=== PATIENT | male | born 1975 | race Caucasian/White ===

== ENCOUNTER 2021-06-21 16:17 | Emergency (ER) | payer MEDICAID ==
[~2021-06-21] VITALS: Ht 172.7 cm; Wt 109.1 kg
[2021-06-21 17:11] VITALS: BP 128/74
== END 2021-06-21 17:11 | disposition home or self-care (01) ==
LOC: EMS 16:19
DX: H60.91 Unspecified otitis externa, right ear (principal); F17.210 Nicotine dependence, cigarettes, uncomplicated; F12.90 Cannabis use, unspecified, uncomplicated
CPT/HCPCS: 99283

== ENCOUNTER 2021-06-22 20:24 | Emergency (ER) | payer MEDICAID ==
[~2021-06-22] VITALS: Ht 172.7 cm; Wt 109.1 kg
[2021-06-22 23:00] VITALS: BP 145/72
== END 2021-06-22 23:00 | disposition home or self-care (01) ==
LOC: EMS 20:26
DX: H60.91 Unspecified otitis externa, right ear (principal); F12.90 Cannabis use, unspecified, uncomplicated; F17.210 Nicotine dependence, cigarettes, uncomplicated
CPT/HCPCS: 99281; Z7502

== ENCOUNTER 2021-06-23 04:42 | Emergency (ER) | payer MEDICAID ==
[~2021-06-23] VITALS: Ht 177.8 cm; Wt 90.9 kg
[2021-06-23 04:51] VITALS: BP 135/85
[2021-06-23] MEDS ORDERED: IBUPROFEN 600 MG TABLET PO ONE (11:45)
== END 2021-06-23 13:00 | disposition home or self-care (01) ==
LOC: EMS 04:44
DX: H60.91 Unspecified otitis externa, right ear (principal); H66.91 Otitis media, unspecified, right ear; F12.90 Cannabis use, unspecified, uncomplicated; F17.210 Nicotine dependence, cigarettes, uncomplicated
CPT/HCPCS: 99281; 99282; Z7502; Z7610